=== PATIENT | male | born 1995 | race Caucasian/White ===

== ENCOUNTER 2017-06-15 13:23 | Day surgery (SDC) | payer OTHER ==
[~2017-06-15 13:23] MED LIST: BUPIVACAINE HCL 0.5 % INJ/PF 30 ML SDV ONE; CEFAZOLIN 2 GM/D5W RTU 2 GM/50 ML RTUPB IV PRN; SUCCINYLCHOLINE CHLORIDE INJ 200 MG/10 ML VIAL ONE
[2017-06-15 14:14] LABS: HEMATOCRIT 45.9 % (37.9-51.0); HEMOGLOBIN 15.9 g/dL (13.5-17.0); MEAN CORPUSCULAR HEMOGLOBIN 30.6 pg (27.0-33.4); MEAN CORPUSCULAR HGB CONC 34.6 g/dL (32.0-36.0); MEAN CORPUSCULAR VOLUME 88 fl (80-97); PLATELET COUNT 269 10^3/uL (150-450); RED CELL DISTRIBUTION WIDTH 12.8 % (11.5-14.0); WHITE BLOOD COUNT 7.9 10^3/uL (4.0-10.5)
[2017-06-15 14:33] LABS: ANION GAP 12 (5-19); BLOOD UREA NITROGEN 17 mg/dL (7-20); CALCIUM 10.2 mg/dL (8.4-10.2); CARBON DIOXIDE 29 mmol/L (22-30); CHLORIDE 102 mmol/L (98-107); GLUCOSE 81 mg/dL (75-110); POTASSIUM 4.1 mmol/L (3.6-5.0); SODIUM 143.4 mmol/L (137-145)
[2017-06-15] MEDS ORDERED: FENTANYL CITRATE INJ/PF 100 MCG/2 ML AMPUL ONE (14:33)
[2017-06-15] MEDS ORDERED: LIDOCAINE 2% INJ-PF (20 MG/ML) 10 ML AMPUL ONE (14:33)
[2017-06-15] MEDS ORDERED: MIDAZOLAM 2 MG/2 ML INJ ONE ×2 (14:34→14:39)
[2017-06-15] MEDS ORDERED: ACETAMINOPHEN 100 ML IV ONE (14:34)
[2017-06-15] MEDS ORDERED: PROPOFOL INJ 200 MG/20 ML VIAL IV ONE (14:34)
[2017-06-15] MEDS ORDERED: DEXAMETHASONE SOD PHOSPHATE INJ 4 MG/1 ML VIAL ONE (14:34)
[2017-06-15] MEDS ORDERED: ONDANSETRON HCL INJ/PF 4 MG/2 ML SDV ONE ×2 (14:34→16:47)
[2017-06-15] MEDS ORDERED: RINGERS SOLUTION,LACTATED 1,000 ML IV PRN ×2 (15:11→15:12)
[2017-06-15] MEDS ORDERED: OXYCODONE-ACETAMINOPHEN 5-325 MG TABLET PO PRN ×3 (15:38→16:47)
[2017-06-15] MEDS ORDERED: MORPHINE SULFATE 10 MG/ML INJ IV PRN (15:38)
[2017-06-15] MEDS ORDERED: MEPERIDINE HCL/PF INJ 25 MG/1 ML DISP.SYRIN IV PRN (15:38)
[2017-06-15] MEDS ORDERED: DIPHENHYDRAMINE HCL 50 MG/ML VIAL IV PRN (15:38)
[2017-06-15] MEDS ORDERED: FENTANYL CITRATE INJ/PF 100 MCG/2 ML AMPUL IV PRN ×4 (15:38→16:47)
[2017-06-15] MEDS ORDERED: PROMETHAZINE HCL INJ 25 MG/1 ML VIAL IV PRN ×2 (15:38)
--- NOTE | 2017-06-15 16:47 | Operative Report ---
Operative Report DATE OF SURGERY: 06/15/17 PREOPERATIVE DIAGNOSIS: Left 4th/5th CMC Fracture Dislocation (4th metcarpal/ hamate) POSTOPERATIVE DIAGNOSIS: Same OPERATION: ORIF 4/5th CMC Fracture-Dislocation SURGEON: WILLIAM GARCIA 1ST [employer] PROGRAM MANAGER: LOBO HAMILTON - Required for retractor placement and fracture reduction/fixation ANESTHESIA: GA COMPLICATIONS: None ESTIMATED BLOOD LOSS: Minimal PROCEDURE: Indication for above procedure: 22-year-old male who sustained a fall down his steps onto his left wrist. Patient sustained a fracture dislocation however there was delayed follow-up because patient was unaware of any injury. At [facility] x-rays confirmed the diagnosis at which point patient was sent to [facility] for further evaluation and treatment. Risks and benefits were explained patient verbalized understanding consented for the procedure. Procedure In Detail: Patient was seen and evaluated in the preoperative holding area. The left upper extremity was initialized and marked. Patient received 2g of Ancef IV for bacterial prophylaxis. Patient was taken back to the operative room where transferred to the operative table and placed under general anesthesia. Once they were adequately anesthetized a nonsterile tourniquet was placed on the upper extremity. A surgical team debriefing was performed ensuring all instrumentation was available, the surgical procedure was discussed with possible concerns reviewed. The upper extremity was prepped with chlorhexidine and alcohol and draped in a sterile fashion. A timeout was done identifying correct patient, procedure and extremity everyone in attendance agree with this and verbalized no concerns. The extremity was exsanguinated the tourniquet was inflated to 250 mmHg. Longitudinal skin incision was made centered over the fourth and fifth CMC joint. Blunt dissection was performed. Branches of the dorsal ulnar cutaneous branch were identified and retracted. The extensor tendons to the fifth digit were elevated including a portion of the underlying retinaculum to avoid hardware irritation postoperatively. The capsule of the fourth/fifth CMC joint was opened and there was notable diastases of the articular surface at the hamate. With a [place] elevator the fracture line was identified. A rongeur was utilized to freshen the bone along the hamate body given the longevity of the injury there was bony overgrowth and thus to adequately reduce the articular surface a slight amount of distal tilt was utilized. C-arm fluoroscopy was obtained which demonstrated uatsdin of the hamate articular surface. A temporary 0.62 K wire was placed from the fifth into the fourth and third metacarpals to maintain reduction. A 1.7 mm square plate was placed on the small hamate fragment. 2 fully threaded cortex screws were placed which adequately buttressed the articular hamate fragment into the volar fragment. Special care during drilling was performed to avoid perforation into the far side. C-arm fluoroscopy was obtained demonstrating uatsdin of the hamate articular surface there was a small gap along the inferior edge secondary to chronicity but good stability of the hamate fragment. Under direct visualization I was able to confirm articular reduction of the hamate fragment. The previous temporary K wire required removal due to the fact it was causing malrotation. Thus a second 0.062 K wires placed from the fifth into the fourth and third metacarpals. A second 0.062 K wire was placed along the bases of the fifth, fourth and third metacarpals to provide further stability. There is no evidence of CMC subluxation or instability after fixation. No crepitus with range of motion. No evidence of malrotation with forearm squeeze or tenodesis. Wound was copiously irrigated with normal saline. The capsule was closed with 3 -0 Monocryl suture interrupted sutures, it successfully covered the plate there is no evidence of tendon irritation. Subcutaneous tissues were then closed with 3-0 Monocryl suture. Skin was closed with 4-0 nylon. 10 cc of 0.5% Marcaine with epinephrine was injected for postoperative pain control. Patient was placed in a dorsal blocking splint maintaining the intrinsic plus position. Sponge counts, instrument counts, needle counts counts were correct. Patient was then awoken from anesthesia. Transferred from the operating room table to the operating room stretcher. There was no intraoperative complications patient tolerated procedure well stable to PACU. Postoperative plan: Patient will follow-up the office in 2 weeks at which point we will obtain radiographs and transition him to a short arm cast until 6 weeks postoperatively at 6 weeks postop we will proceed with K wire removal.
[2017-06-15] MEDS: FENTANYL CITRATE INJ/PF 100 MCG/2 ML AMPUL ONE ×2 (17:12→17:17)
[2017-06-15] MEDS ORDERED: KETOROLAC TROMETHAMINE INJ/PF 30 MG/1 ML SDV ONE (17:24)
--- NOTE | 2017-06-15 17:50 | RADIOLOGY REPORT (SQ) ---
EXAM DESCRIPTION: HAND LEFT 2 VIEWS; NO CHG FLUORO COMPLETED DATE/TIME: 06/15/2017 5:06 pm REASON FOR STUDY: ORIF LEFT HAND S63.056A DISLOCATION OF OTH CARPOMETACARPAL JOINT OF UNSP [place] COMPARISON: None. FLUOROSCOPY TIME: 2 minutes 33 seconds. 8 images saved to PACS. TECHNIQUE: Intra-operative images acquired during surgical procedure to evaluate progress. NUMBER OF IMAGES: 8 LIMITATIONS: None. FINDINGS: Fluoroscopic images demonstrates multiple views of internal and external fixation hardware left hand without gross complication. IMPRESSION: IMAGE(S) OBTAINED DURING PROCEDURE. COMMENT: Quality ID 145: Final reports for procedures using fluoroscopy that document radiation exp osure indices, or exposure time and number of fluorographic images (if radiation exposure indices are not available) Please consult full operative report of the attending physician for description of the procedure. TECHNICAL DOCUMENTATION: JOB ID: [id number] [employer]- All Rights Reserved Reading location - IP/workstation name: [email or web address]
--- NOTE | 2017-06-15 17:50 | RADIOLOGY REPORT (SQ) ---
EXAM DESCRIPTION: HAND LEFT 2 VIEWS; NO CHG FLUORO COMPLETED DATE/TIME: 06/15/2017 5:06 pm REASON FOR STUDY: ORIF LEFT HAND S63.056A DISLOCATION OF OTH CARPOMETACARPAL JOINT OF UNSP [place] COMPARISON: None. FLUOROSCOPY TIME: 2 minutes 33 seconds. 8 images saved to PACS. TECHNIQUE: Intra-operative images acquired during surgical procedure to evaluate progress. NUMBER OF IMAGES: 8 LIMITATIONS: None. FINDINGS: Fluoroscopic images demonstrates multiple views of internal and external fixation hardware left hand without gross complication. IMPRESSION: IMAGE(S) OBTAINED DURING PROCEDURE. COMMENT: Quality ID 145: Final reports for procedures using fluoroscopy that document radiation exp osure indices, or exposure time and number of fluorographic images (if radiation exposure indices are not available) Please consult full operative report of the attending physician for description of the procedure. TECHNICAL DOCUMENTATION: JOB ID: [id number] [employer]- All Rights Reserved Reading location - IP/workstation name: [email or web address]
[2017-06-15 19:03] VITALS: BP 130/59
== END 2017-06-15 19:10 | disposition home or self-care (01) ==
LOC: OROUT 13:23
PROVIDERS: ATTEND Orthopaedic Surgery
PROC: 0PSQ04Z Reposition Left Metacarpal with Internal Fixation Device, Open Approach (ICD-10-PCS; 2017-06-15)
PROC: 0PSQ04Z Reposition Left Metacarpal with Internal Fixation Device, Open Approach (ICD-10-PCS; principal; 2017-06-15 16:15)
DX: S62.142A Displaced fracture of body of hamate [unciform] bone, left wrist, initial encounter for closed fracture (principal); S63.045A Dislocation of carpometacarpal joint of left thumb, initial encounter; S62.314D Displaced fracture of base of fourth metacarpal bone, right hand, subsequent encounter for fracture with routine healing; W10.9XXA Fall (on) (from) unspecified stairs and steps, initial encounter
CPT/HCPCS: 36415; 85027; 80048; 73120; 26615 ×2; C1769 ×2; J2250; J3490 ×2; J1100; J3010; J1885; J0330; J2405; J2704; J0690; J0131; 01830